=== PATIENT | female | born 1940 | race Caucasian/White ===

== ENCOUNTER → 2016-10-05 | Outpatient (CLI) | payer MEDICARE ==
[~2016-10-05] MED LIST: REGADENOSON 0.4 MG/5 ML SYRINGE ONE
== END | disposition home or self-care (01) ==
LOC: CFH 07:32
PROVIDERS: ATTEND Internal Medicine Cardiovascular Disease
DX: I08.3 Combined rheumatic disorders of mitral, aortic and tricuspid valves (principal); I37.1 Nonrheumatic pulmonary valve insufficiency; I10 Essential (primary) hypertension
CPT/HCPCS: 78452; 93017; 93306; A9502; J2785

== ENCOUNTER 2018-09-24 13:15 | Outpatient (CLI) | payer MEDICARE | END 2018-09-24 23:59 | disposition home or self-care (01) | LOC: CFH 13:15 | PROVIDERS: ATTEND Internal Medicine Cardiovascular Disease | DX: I08.8 Other rheumatic multiple valve diseases (principal); I10 Essential (primary) hypertension; E78.5 Hyperlipidemia, unspecified | CPT/HCPCS: 93306 ==

== ENCOUNTER → 2019-10-17 | Outpatient (CLI) | payer MEDICARE | END | disposition home or self-care (01) | LOC: CVU 15:36 | PROVIDERS: ATTEND Internal Medicine Cardiovascular Disease | DX: I08.8 Other rheumatic multiple valve diseases (principal); I10 Essential (primary) hypertension | CPT/HCPCS: 93306; 93356 ==

== ENCOUNTER → 2019-12-01 | Outpatient (CLI) | payer MEDICARE | END | disposition home or self-care (01) | LOC: CFH 12:06 | PROVIDERS: ATTEND Internal Medicine Cardiovascular Disease | DX: I10 Essential (primary) hypertension (principal); R06.02 Shortness of breath; I35.1 Nonrheumatic aortic (valve) insufficiency | CPT/HCPCS: 78452; 93017; A9502; J2785 ==

== ENCOUNTER 2020-07-10 14:39 | Emergency (ER) | payer MEDICARE ==
[~2020-07-10] VITALS: Ht 162.6 cm; Wt 58.6 kg
[2020-07-10 14:41] VITALS: BP 155/63
--- NOTE | 2020-07-10 14:47 | NUR ---
EKG DONE IN TRIAGE.
--- NOTE | 2020-07-10 15:23 | NUR ---
FROM [facility], CC OF LOOSE COUGH WITH YELLOW/GREEN PHLEGM AND FEELING LIKE "IM SHAKING FROM MY INSIDES BUT I HAVE STEADY HANDS" X 1 WEEK, WEAKNESS, NAUSEA, AND LOSS OF BALANCE X 2-3 DAYS. PT STATES SHE HAS A HX OF INNER EAR INFECTION YEARS AGO AND STATES THIS FEELS SIMILIAR. DENIES DIZZYNESS AT BEDSIDE.
[2020-07-10 16:32] LABS: MICROSCOPIC NOT IND
[2020-07-10 16:33] LABS: BASOPHILS % (AUTO) 1 % (0-1); EOSINOPHILS % (AUTO) 3 % (1-7); LYMPHOCYTES % (AUTO) 20 % (22-44); MEAN CORPUSCULAR HEMOGLOBIN 32.2 pg (27.0-34.8); MEAN CORPUSCULAR HGB CONC 33.8 g/dL (32.4-35.8); MEAN PLATELET VOLUME 8.4 fL (7.4-10.4); MONOCYTES % (AUTO) 6 % (2-9); NEUTROPHILS % (AUTO) 70 % (42-75); PLATELET COUNT 270 x10^3/uL (130-400); RED BLOOD COUNT 3.95 x10^6/uL (3.82-5.3); RED CELL DISTRIBUTION WIDTH 15.3 % (9.6-15.2)
[2020-07-10 16:34] LABS: MD NO
[2020-07-10 16:44] LABS: ALANINE AMINOTRANSFERASE 22 U/L (12-78); ALBUMIN 3.8 g/dL (3.4-5.0); ANION GAP 8 mmol/L (5-15); CHLORIDE 110 mmol/L (98-107); CREATININE 1.25 mg/dL (0.55-1.02)
[2020-07-10 16:46] LABS: ALKALINE PHOSPHATASE 62 U/L (45-117); BILIRUBIN,TOTAL 0.3 mg/dL (0.2-1.0)
== END 2020-07-10 18:41 | disposition home or self-care (01) ==
LOC: ED 16:04
DX: J32.0 Chronic maxillary sinusitis (principal); R51.9 Headache, unspecified; R53.1 Weakness; R05 Cough; R06.02 Shortness of breath; E03.9 Hypothyroidism, unspecified; I12.9 Hypertensive chronic kidney disease with stage 1 through stage 4 chronic kidney disease, or unspecified chronic kidney disease; N18.9 Chronic kidney disease, unspecified; G89.29 Other chronic pain; M19.90 Unspecified osteoarthritis, unspecified site; E78.00 Pure hypercholesterolemia, unspecified; Z88.0 Allergy status to penicillin; Z88.8 Allergy status to other drugs, medicaments and biological substances; Z86.73 Personal history of transient ischemic attack (TIA), and cerebral infarction without residual deficits; Z79.899 Other long term (current) drug therapy
CPT/HCPCS: 36415; 70450; 71045; 80053; 81003; 85025; 93005; 99284; 99285

== ENCOUNTER → 2020-10-29 | Outpatient (CLI) | payer MEDICARE | END | disposition home or self-care (01) | LOC: CVU 12:23 | PROVIDERS: ATTEND Internal Medicine Cardiovascular Disease | DX: I06.1 Rheumatic aortic insufficiency (principal); I10 Essential (primary) hypertension; E78.5 Hyperlipidemia, unspecified | CPT/HCPCS: 93306 ==

== ENCOUNTER 2021-01-10 16:57 | Emergency (ER) | payer MEDICARE ==
[~2021-01-10] VITALS: Ht 162.6 cm; Wt 66.8 kg
--- NOTE | 2021-01-10 17:23 | NUR ---
EKG IN TRIAGE
--- NOTE | 2021-01-10 19:21 | NUR ---
pt called to room from lobby
[2021-01-10 19:48] LABS: ALANINE AMINOTRANSFERASE 22 U/L (12-78); ALBUMIN 3.5 g/dL (3.4-5.0); ANION GAP 5 mmol/L (5-15); BASOPHILS % (AUTO) 1 % (0-1); CALCIUM 9.1 mg/dL (8.5-10.1); CHLORIDE 107 mmol/L (98-107); CREATININE 1.02 mg/dL (0.55-1.02); EOSINOPHILS % (AUTO) 4 % (1-7); LYMPHOCYTES % (AUTO) 23 % (22-44); MEAN CORPUSCULAR HEMOGLOBIN 31.2 pg (27.0-34.8); MEAN PLATELET VOLUME 8.6 fL (7.4-10.4); MONOCYTES % (AUTO) 7 % (2-9); NEUTROPHILS % (AUTO) 66 % (42-75); PLATELET COUNT 246 x10^3/uL (130-400); RED BLOOD COUNT 3.82 x10^6/uL (3.82-5.3); RED CELL DISTRIBUTION WIDTH 15.3 % (9.6-15.2)
[2021-01-10 19:50] LABS: ALKALINE PHOSPHATASE 78 U/L (45-117); BILIRUBIN,TOTAL 0.3 mg/dL (0.2-1.0); TOTAL PROTEIN 7.5 g/dL (6.4-8.2)
--- NOTE | 2021-01-10 20:09 | NUR ---
PATIENT BP 197/77 WITH SYMPTOMATIC DIZZINESS WHEN WALKING. ERP AWARE.
[2021-01-10 20:26] LABS: MICROSCOPIC INDICATED
[2021-01-10 20:26] LABS: FREE T4 (FREE THYROXINE) 0.7 ng/dL (0.76-1.46)
[2021-01-10] MEDS ORDERED: hydrALAzine 20 MG/ML, 1ML IV ONE (21:00)
[2021-01-10] MEDS ORDERED: hydrALAzine 20 MG/ML, 1ML ONE (21:10)
[2021-01-10] MEDS ORDERED: NITROFURANTOIN (MACROBID) 100 MG CAPSULE PO ONE (21:30)
[2021-01-10] MEDS ORDERED: FOSFOMYCIN 3 GM PACKET PO ONE (22:00)
[2021-01-10] MEDS ORDERED: FOSFOMYCIN 3 GM PACKET ONE (22:02)
[2021-01-10 22:11] VITALS: BP 139/50
--- NOTE | 2021-01-10 22:11 | NUR ---
Patient given discharge instructions and they have confirmed that they understand the instructions. Patient ambulatory with steady gait. NAD, all questions answered appropriately, denies additional needs at this time. No personal belongings left in room after discharge.
== END 2021-01-10 22:13 | disposition home or self-care (01) ==
LOC: ED 21:07
DX: R53.1 Weakness (principal); R53.83 Other fatigue; E78.00 Pure hypercholesterolemia, unspecified; I10 Essential (primary) hypertension; E03.9 Hypothyroidism, unspecified; R51.9 Headache, unspecified
CPT/HCPCS: 36415; 70450; 80053; 81001; 84439; 84443; 85025; 87086; 93005; 99285